=== PATIENT | female | born 1990 ===

== ENCOUNTER 2017-07-27 09:44 | Day surgery (SDC) | payer BC ==
[~2017-07-27] VITALS: Ht 160 cm; Wt 46.7 kg
[2017-07-27] VITALS (11 sets, daily range): BP systolic 91–121; BP diastolic 59–95
[2017-07-27 10:18] LABS: APPEARANCE,URINE CLEAR; KETONES,URINE NEGATIVE (NEGATIVE); LEUKOCYTE ESTERASE ,URINE 1+ (NEGATIVE); NITRITE,URINE NEGATIVE (NEGATIVE); PH,URINE 5 (4.5-8.0); PROTEIN,URINE NEGATIVE (NEGATIVE); UROBILINOGEN,URINE NORMAL MG/DL (0.0-1.0)
[2017-07-27 10:35] LABS: BACTERIA,URINE FEW /HPF; SQUAMOUS EPITHELIAL CELL,UR FEW /LPF (NONE/OCC)
[2017-07-27] MEDS ORDERED: BSS 500ml btl ONE (10:35)
[2017-07-27] MEDS ORDERED: Kenalog-40 1ml Vial ONE (10:35)
[2017-07-27] MEDS ORDERED: Pred Forte 1% Opth Susp 1ml ONE (10:35)
[2017-07-27] MEDS ORDERED: Maxitrol Opth Oint 3.5gm ONE (10:36)
[2017-07-27] MEDS ORDERED: Povidone-Iodine 5% opth solution ONE (10:36)
[2017-07-27] MEDS ORDERED: Dexamethasone 4mg/ml vial ONE ×2 (10:36→11:30)
[2017-07-27] MEDS ORDERED: Tetracaine 0.5% Opth 4ml Soln ONE (10:36)
[2017-07-27] MEDS ORDERED: Bupivacaine 0.75% 30ml vial INJ ONE (10:37)
[2017-07-27] MEDS ORDERED: Lidocaine 2% MPF 5ml Vial INJ ONE (10:37)
[2017-07-27] MEDS ORDERED: Goniosol 2.5% Opth Soln - 15ml ONE (10:37)
[2017-07-27] MEDS ORDERED: EPINEPHrine 1mg/1ml Amp ONE (10:37)
[2017-07-27] MEDS ORDERED: BSS 15ml BTL ONE (10:37)
[2017-07-27] MEDS ORDERED: Cyclopentolate 1% Opth Sol 2ml ONE (10:56)
[2017-07-27] MEDS ORDERED: Phenylephrine 2.5% Op 2ml Soln ONE (10:56)
[2017-07-27] MEDS ORDERED: Tropicamide 1% Opth 15ml Soln ONE (10:56)
[2017-07-27] MEDS ORDERED: Proparacaine 0.5% Opth Soln 15ml ONE (10:57)
[2017-07-27] MEDS ORDERED: Cyclopentolate 1% Opth Sol 2ml RIGHT EYE SCH (11:00)
[2017-07-27] MEDS ORDERED: Tropicamide 1% Opth 15ml Soln RIGHT EYE SCH (11:00)
[2017-07-27] MEDS ORDERED: Proparacaine 0.5% Opth Soln 15ml RIGHT EYE SCH (11:00)
[2017-07-27] MEDS ORDERED: Phenylephrine 2.5% Op 2ml Soln RIGHT EYE SCH (11:00)
[2017-07-27] MEDS ORDERED: Lidocaine 1% MPF 10mg/ml 5ml ONE (11:30)
[2017-07-27] MEDS ORDERED: Ketorolac 30mg Inj ONE (11:30)
[2017-07-27] MEDS ORDERED: fentaNYL 100 mcg/2 mL IV ONE (11:30)
[2017-07-27] MEDS ORDERED: NS Irrig 1000ml ONE (11:30)
[2017-07-27] MEDS ORDERED: Propofol 200mg/20ml IV ONE (11:30)
[2017-07-27] MEDS ORDERED: Metoclopramide 10mg/2ml Inj ONE (11:30)
[2017-07-27] MEDS ORDERED: LR 1000ml ONE (11:30)
[2017-07-27] MEDS ORDERED: Glycopyrrolate 0.2mg/ml 1ml Vial ONE (11:30)
[2017-07-27] MEDS ORDERED: Sterile Water Irrig 1000ml IRRIG ONE (11:30)
[2017-07-27] MEDS ORDERED: Midazolam 2mg/2ml Inj ONE (11:30)
[2017-07-27 11:55] LABS: BASOPHILS % (AUTO) 0.9 % (0.0-2.0); EOSINOPHILS % (AUTO) 0.2 % (0.0-3.0); LYMPHOCYTES % (AUTO) 43.3 % (20.0-45.0); MEAN CORPUSCULAR HEMOGLOBIN 32.1 PG (27.0-31.0); MEAN CORPUSCULAR VOLUME 97 FL (80-99); MEAN PLATELET VOLUME 8.1 FL (6.5-10.1); MONOCYTES % (AUTO) 6.3 % (1.0-10.0); NEUTROPHILS % (AUTO) 49.3 % (45.0-75.0); PLATELET COUNT 242 K/UL (150-450); RED BLOOD COUNT 4.26 M/UL (4.20-5.40); RED CELL DISTRIBUTION WIDTH 10.8 % (11.6-14.8); WHITE BLOOD COUNT 4.5 K/UL (4.8-10.8)
--- NOTE | 2017-07-27 12:03 | Anethesia Preoperative Eval ---
Anesthesia Pre-op PMH/ROS General Date of Evaluation: Jul 27, 2017 Anesthesiologist: Macy ASA Score: ASA 2 Mallampati Score Class I : Soft palate, uvula, fauces, pillars visible Class II: Soft palate, uvula, fauces visible Class III: Soft palate, base of uvula visible Class IV: Only hard plate visible Mallampati Classification: Class I Surgeon: Rick Diagnosis: pepherial loss of vision right eye Surgical Procedure: Right eye scleral buckle, gas injection Anesthesia History: none Social History: smoking - occasinal , alcohol use - glass of wine once a month Allergies: Uncoded Allergies: nsaids (Adverse Reaction, Severe, 07/27/17) upset stomach Medications: see eMAR Past Medical History Neurologic/Psychiatric: Reports: depression/anxiety - anxiety; needle phobia Anesthesia Pre-op Phys. Exam Physician Exam Last Vital Signs Date Time Temp Pulse Resp B/P (MAP) Pulse Ox O2 Delivery O2 Flow Rate FiO2 07/27/17 10:54 97.9 83 20 121/78 100 Room Air Constitutional: NAD Neurologic: CN 2-12 intact Cardiovascular: RRR Respiratory: CTA Gastrointestinal: S/NT/ND Airway Exam Mallampati Score: Class I MO: full ROM: full Teeth: intact Dentures: no upper, no lower Anesthesia Pre-op A/P Labs Hematology Test 07/27/17 11:40 White Blood Count Pending Red Blood Count Pending Hemoglobin Pending Hematocrit Pending Mean Corpuscular Volume Pending Mean Corpuscular Hemoglobin Pending Mean Corpuscular Hemoglobin Concent Pending Red Cell Distribution Width Pending Platelet Count Pending Mean Platelet Volume Pending Neutrophils (%) (Auto) Pending Lymphocytes (%) (Auto) Pending Monocytes (%) (Auto) Pending Eosinophils (%) (Auto) Pending Basophils (%) (Auto) Pending Coagulation Test 07/27/17 11:40 Prothrombin Time Pending Prothromb Time International Ratio Pending Activated Partial Thromboplast Time Pending Chemistry Test 07/27/17 11:40 Sodium Level Pending Potassium Level Pending Chloride Level Pending Carbon Dioxide Level Pending Blood Urea Nitrogen Pending Creatinine Pending Estimat Glomerular Filtration Rate Pending Glucose Level Pending Calcium Level Pending Urine Test Test 07/27/17 10:00 Urine HCG, Qualitative Negative Studies Pre-op Studies: EKG - NSR 73 bpm Risk Assessment & Plan Plan: GA per patient and per Surgeon. Status Change Before Surgery: No Pre-Antibiotics Given Within 1 Hr of Incision: No Smitha Cavazos CRNA Jul 27, 2017 12:03
--- NOTE | 2017-07-27 12:04 | Immediate Post-Op Evaluation ---
Immediate Post-Op Evalulation Immediate Post-Op Evalulation Date of Evaluation: Jul 27, 2017 Time of Evaluation: 14:18 IV Fluids: LR Blood Products: 0 Estimated Blood Loss: <5 ml Urinary Output: 0 Blood Pressure Systolic: 112 Blood Pressure Diastolic: 65 Pulse Rate: 110 Respiratory Rate: 24 O2 Sat by Pulse Oximetry: 100 Temperature (Fahrenheit): 97.9 Pain Score (1-10): 0 Nausea: No Vomiting: No Complications none Patient Status: awake, reacts, patent Hydration Status: adequate Given Within 1 Hr of Incision: Smitha Lee CRNA Jul 27, 2017 12:04
--- NOTE | 2017-07-27 12:05 | 48 Hour Post Anesthesia Eval ---
Post Anesthesia Evaluation Date of Evaluation: Jul 27, 2017 Time of Evaluation: 14:36 Blood Pressure Systolic: 108 0: 72 Pulse Rate: 94 Respiratory Rate: 17 Temperature (Fahrenheit): 97.9 O2 Sat by Pulse Oximetry: 100 Airway: patent Nausea: No Vomiting: No Pain Intensity: 0 Hydration Status: adequate Mental Status/LOC: patient returned to baseline Follow-up Care/Observations: pt in prone position per surgeon request. VSS Post-Anesthesia Complications: none Follow-up care needed: patient intructions given Smitha Cavazos CRNA Jul 27, 2017 12:05
[2017-07-27 12:06] LABS: ANION GAP 13 mmol/L (5-15); CALCIUM 9.8 MG/DL (8.5-10.1); CARBON DIOXIDE 23 MMOL/L (21-32); CHLORIDE 104 MMOL/L (98-107); CREATININE 0.9 MG/DL (0.55-1.30); GLOMERULAR FILTRATION RATE > 60 mL/min (>60); POTASSIUM 4.1 MMOL/L (3.5-5.1); SODIUM 140 MMOL/L (136-145)
[2017-07-27 12:07] LABS: PROTHROMBIN TIME 10.6 SEC (9.30-11.50)
--- NOTE | 2017-07-27 12:11 | Pre-Procedure Note/Attestation ---
Pre-Procedure Note/Attestation Complete Prior to Procedure Planned Procedure: right Procedure Narrative: SB/Cryo/Gas OD Indications for Procedure Pre-Operative Diagnosis: RRD OD Attestation I attest that I discussed the nature of the procedure; its benefits; risks and complications; and alternatives (and the risks and benefits of such alternatives ), prior to the procedure, with the patient (or the patient's legal strategic partnership representative). I attest that, if there was a reasonable possibility of needing a blood transfusion, the patient (or the patient's legal strategic partnership representative) was given the [facility] standardized written summary, pursuant to the Noel Elyssa Blood Safety Act ([place] Health and Safety Code # 1645, as amended). I attest that I re-evaluated the patient just prior to the surgery and that there has been no change in the patient's H&P, except as documented below: Osman Cabrera M.D. Jul 27, 2017 12:11
--- NOTE | 2017-07-27 12:12 | Operative Note - PDOC ---
Operative Note Operative Note Pre-op Diagnosis: RRD OD Procedure: SB/Cryo/Gas OD s/p LASIK with corneal edema OD Post-op Diagnosis: Same Surgeon: Rick Anesthesia: general Specimen: none Complications: none Condition: stable Fluids: Minimal Estimated Blood Loss: minimal Drains: none Implant(s) used?: Yes - SB/Sleeve Indications for Procedure Indications for the procedure: The patient was found to have retinal detachment. She presents today for surgery after review of the risks, benefits, alternative and signing informed consent into the medical chart. Description of Procedure Location: [facility] [place] Pre-operative Diagnosis: 1. 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 s/p LASIK with corneal edema, RIGHT EYE Post-operative Diagnosis: Same Procedure: Scleral buckle (41 band, 72 sleeve), cryopexy, anterior chamber paracentesis, infusion of SF6 gas, RIGHT EYE Surgeon: Osman Cabrera M.D. Anesthesia: General anesthesia Complications: None Procedure performed: The patient was met in the pre-op area where informed consent was reviewed. The operative eye was verified, marked and dilated. The patient was transferred to the operative suite, where cardiopulmonary monitoring was established and general anesthesia was administered without complications. The eye was prepped and draped in sterile ophthalmic fashion. A lid speculum was placed. Under direct visualization, the conjunctiva was opened and the quadrants were dissected. The rectus muscles were isolated and hooked with silk sutures. The quadrants were inspected and no scleral defects were noted. The retina was examined by indirect ophthalmoscopy. Of note, the cornea was hazy due to progressive corneal edema during surgery. The retinal breaks were identified and cryo was applied to the holes within the detachment (superotemporal) and inferonasal hole; inspection of the periphery revealed multiple other areas of lattice (visualization at this point was limited due to corneal edema). The sclera was marked at the area of the breaks retinal break. The 41 band was encircled around the globe with its ends attached in the superonasal quadrant with the 72 sleeve. The buckle was sutured to the sclera with 5-0 nylon sutures at 4mm posterior to the muscle insertions in all 4 quadrants at the level of the breaks that were marked on the sclera.The buckle was pulled flush against the globe, then 8mm beyond flush. Inspection of the fundus revealed that the indentation of the buckle supported the break adequately. The anterior chamber was tapped to reduce the intraocular pressure. SF6 gas was injected into the eye and the anterior chamber was tapped again to reduce the intraocular pressure. Inspection of the posterior pole revealed normal perfusion with intravitreal gas bubble. The buckle ends were trimmed. The stay sutures were removed, the conjunctiva was pulled into place and closed with 5-0 plain gut sutures. Additional peribulbar anesthesia was administered. Subconjunctival vancomycin and dexamethasone were administered. The lid speculum was removed. The eye was cleaned of prep and drape. Atropine drop and Maxitrol ointment was applied. A pressure patch was placed. The patient was turned over to the anesthesia team, extubated and transferred in stable condition to the PACU. Osman Cabrera M.D. Jul 27, 2017 12:12
--- NOTE | 2017-07-27 12:12 | Brief Operative Note ---
Immediate Post Operative Note Operative Note Pre-op Diagnosis: RRD OD s/p LASIK and corneal edema OD Procedure: SB/Cryo/Gas OD Post-op Diagnosis: Same Surgeon: Rick Anesthesia: general Specimen: none Complications: none Condition: stable Fluids: Minimal Estimated Blood Loss: minimal Drains: none Implant(s) used?: Yes - Osman Mcgovern M.D. Jul 27, 2017 12:12
[2017-07-27] MEDS ORDERED: acetaZOLAMIDE 500mg Inj ONE (13:54)
[2017-07-27] MEDS ORDERED: fentaNYL 100 mcg/2 mL IV PRN (14:30)
[2017-07-27] MEDS ORDERED: Hydromorphone 0.5mg/0.5ml inj IVP PRN (14:30)
[2017-07-27] MEDS ORDERED: Acetaminophen (Non formulary) 100 ML IV ONE (14:45)
--- NOTE | 2017-07-28 16:41 | Cardiology Report ---
APPROVED REPORT EKG Measurement Heart [id number] Normal sinus rhythm Rightward axis Borderline ECG
== END 2017-07-27 16:25 | disposition home or self-care (01) ==
LOC: SUR 09:44
DX: H33.21 Serous retinal detachment, right eye (principal); H18.20 Unspecified corneal edema; H33.321 Round hole, right eye; F41.9 Anxiety disorder, unspecified; F32.9 Major depressive disorder, single episode, unspecified
CPT/HCPCS: 36415; 67101; 67107; 80048; 81001; 81025; 85025; 85610; 85730; 93005; J1100; J1120; J1885; J2250; J2405; J2704; J2765; J3010; J3370; J3490; J7120; 94003; 94150